=== PATIENT | female | born 1950 | race Caucasian/White ===

== ENCOUNTER → 2021-02-21 | Day surgery (SDC) | payer MEDICARE, OTHER ==
[~2021-02-21] VITALS: Ht 160 cm; Wt 84.8 kg
[~2021-02-21] MED LIST: AUGMENTIN 875-1 EACH PO; IBUPROFEN800 MG PO; LASIX40 MG PO; METOPROLOL TART50 M1 PO; OMEPRAZOLE40 MG PO; POTASSIUM CHLO20 ME2 PO; PREDNISONE5 MG PO; ZOCOR40 MG PO; [UNRECOGNIZED DRUG - OTHER] IV
== END | disposition home or self-care (01) ==
LOC: FAS 07:30
DX: Z12.11 Encounter for screening for malignant neoplasm of colon (principal); D12.5 Benign neoplasm of sigmoid colon; K57.30 Diverticulosis of large intestine without perforation or abscess without bleeding; K64.8 Other hemorrhoids
CPT/HCPCS: J1610; J2250; J2704